=== PATIENT | female | born 1970 | race American Indian/Alaskan Native ===

== ENCOUNTER 2018-06-28 00:54 | Emergency (ER) | payer SELFPAY ==
[2018-06-28] MEDS ORDERED: Sodium Chloride 0.9% 1,000 ML IV ONE (01:10)
[2018-06-28 01:11] VITALS: RESP 20
[2018-06-28] MEDS ORDERED: Sucralfate 1 gm/10 ml Oral Susp UD PO STA (01:13)
--- NOTE | 2018-06-28 01:15 | C.PDOC ---
History Of Present Illness 47 year old female presents to the ED c/o upper abdominal and lower chest pain for the past 2 days. Patient admits to drinking alcohol tonight. Patient denies fever, chills, SOB, palpitations, rash, back pain, dysuria, weakness, numbness. Chief Complaint (Nursing): Abdominal Pain History Per: Patient History/Exam Limitations: intoxication Onset/Duration Of Symptoms: Days Current Symptoms Are (Timing): Still Present Suicide/Self Injury Attempted (Context): None Modifying Factor(s): Alcohol Associated Symptoms: denies: Depression, Suicidal Thoughts, Suicidal Plan Additional History Per: Patient Past Medical History Reviewed: Historical Data, Nursing Documentation, Vital Signs Vital Signs: Last Vital Signs Temp 98 F 06/28/18 01:03 Pulse 71 06/28/18 01:03 Resp 20 06/28/18 01:03 BP 122/80 06/28/18 01:03 Pulse Ox 99 06/28/18 01:03 - Medical History PMH: Anxiety, HTN Surgical History: No Surg Hx Family History: States: Unknown Family Hx - Social History Hx Alcohol Use: Yes Hx Substance Use: Yes - Immunization History Hx Tetanus Toxoid Vaccination: No Hx Influenza Vaccination: No Hx Pneumococcal Vaccination: No Review Of Systems Constitutional: Negative for: Fever, Chills Cardiovascular: Positive for: Chest Pain Respiratory: Negative for: Shortness of Breath Gastrointestinal: Positive for: Abdominal Pain. Negative for: Nausea, Vomiting Skin: Negative for: Rash Neurological: Negative for: Weakness, Numbness Psych: Negative for: Depression, Suicidal ideation Physical Exam - Physical Exam Appears: Non-toxic, No Acute Distress, Other (AOB) Skin: Normal Color, Warm, Dry Head: Atraumatic, Normacephalic Eye(s): bilateral: Normal Inspection Oral Mucosa: Moist Neck: Normal ROM, Supple Chest: Symmetrical Cardiovascular: Rhythm Regular Respiratory: Normal Breath Sounds, No Rales, No Rhonchi, No Wheezing Gastrointestinal/Abdominal: Soft, Tenderness (epigastric), No Guarding, No Rebound Extremity: Normal ROM, No Tenderness, No Swelling Neurological/Psych: Oriented x3, Normal Speech, Normal Cognition Gait: Steady ED Course And Treatment - Laboratory Results Result Diagrams: 06/28/18 01:27 06/28/18 01:27 ECG: Interpreted By Me, Viewed By Me ECG Rhythm: Sinus Rhythm ECG Interpretation: Normal, No Acute Changes Interpretation Of ECG: NSR, normal tracings. Rate From EC O2 Sat by Pulse Oximetry: 99 (ON RA) Pulse Ox Interpretation: Normal Medical Decision Making Medical Decision Making: Plan: * Labs * EKG * CXR * Carafate 1 gm PO * Protonix 40 mg IVP * IV fluids * Toradol 30 mg IVP * UA Disposition Counseled Patient/Family Regarding: Diagnosis - Disposition Referrals: [facility] [Outside] Disposition: HOME/ ROUTINE Disposition Time: 03:49 Condition: STABLE Prescriptions: Pantoprazole Sodium [Protonix] 40 mg PO DAILY #20 ect Potassium Chloride [K-Dur 20] 20 meq PO DAILY #14 tab Sucralfate [Carafate] 1 gm PO BID #30 tablet Instructions: Storey Diet, Gastritis (DC), Alcohol Abuse and Alcoholism (DC), Hypokalemia (DC) - POA Present On Arrival: None - Clinical Impression Clinical Impression: Gastritis, Gastritis due to alcohol without hemorrhage, Hypokalemia - Scribe Statement The provider has reviewed the documentation as recorded by the Scribconnie Jolly All medical record entries made by the Scribe were at my direction and personall y dictated by me. I have reviewed the chart and agree that the record accurately reflects my personal performance of the history, physical exam, medical decision making, and the department course for this patient. I have also personally directed, reviewed, and agree with the discharge instructions and disposition.
[2018-06-28] MEDS ORDERED: Sodium Chloride 0.9% 1,000 ML ONE (01:31)
[2018-06-28 01:33] LABS: BASO # 0.2 K/uL (0.0-0.2); BASO % 1.5 % (0.0-2.0); EOS # 0.1 K/uL (0.0-0.7); EOS % 1.2 % (0.0-4.0); HEMOGLOBIN 13.2 g/dL (11.0-18.0); LYMPH # 3.7 K/uL (1.0-4.3); LYMPH % 32.3 % (20.0-40.0); MEAN CELL VOLUME 77.2 fL (81.0-99.0); MEAN CORPUSCULAR HEMOGLOBIN 24.6 pg (27.0-31.0); MEAN CORPUSCULAR HGB CONC 31.8 g/dL (33.0-37.0); MEAN PLATELET VOLUME 8.4 fL (7.2-11.7); MONO # 0.5 K/uL (0.0-0.8); MONO % 3.9 % (0.0-10.0); NEUT # 7.1 K/uL (1.8-7.0); NEUT % 61.1 % (50.0-75.0); RBC 5.38 Mil/uL (3.80-5.90); WHITE BLOOD COUNT 11.6 K/uL (4.8-10.8)
[2018-06-28 02:05] LABS: SQUAMOUS EPITHIAL 1 /hpf (0-5); URINE BILIRUBIN NEGATIVE (NEGATIVE); URINE BLOOD NEGATIVE (NEGATIVE); URINE CLARITY Hazy (Clear); URINE COLOR Straw (YELLOW); URINE GLUCOSE (UA) NORMAL (Normal); URINE LEUKOCYTE ESTERASE NEG Leu/uL (Negative); URINE PROTEIN NEGATIVE (NEGATIVE); URINE UROBILINOGEN NORMAL mg/dL (0.2-1.0)
[2018-06-28 02:20] LABS: HCG,QUALITATIVE URINE NEGATIVE (NEGATIVE)
[2018-06-28 02:21] LABS: ALB/GLOB RATIO 1.3 (1.0-2.1); ALBUMIN 4.6 g/dL (3.5-5.0); AST/SGOT 31 U/L (14-36); BLOOD UREA NITROGEN 10 mg/dL (7-17); CALCIUM 9.8 mg/dl (8.6-10.4); GFR NON-AFRICAN AMERICAN > 60; LIPASE 123 U/L (23-300)
[2018-06-28 02:26] LABS: ALT/SGPT < 6 U/L (9-52)
[2018-06-28] MEDS ORDERED: Potassium Chloride 20 mEq ER Tab PO STA (02:38)
[2018-06-28] MEDS ORDERED: Potassium Chloride 20 mEq ER Tab PO ONE (03:00)
[2018-06-28 04:07] VITALS: BP 110/70; PULSE 66; TEMP 97.9; O2SAT 96
--- NOTE | 2018-06-28 09:10 | RAD ---
Date of service: 06/28/2018 HISTORY: chest pain COMPARISON: 06/28/2018 FINDINGS: LUNGS: Diffuse increased interstitial lung markings suggestive for venous congestion. Mild patchy increased markings at the lung bases. PLEURA: No significant pleural effusion identified, no pneumothorax apparent. CARDIOVASCULAR: No aortic atherosclerotic calcification present. Normal cardiac size. Venous congestion. OSSEOUS STRUCTURES: No significant abnormalities. VISUALIZED UPPER ABDOMEN: Normal. OTHER FINDINGS: None. IMPRESSION: Diffuse increased interstitial lung markings suggestive for venous congestion. Mild patchy increased markings at the lung bases.
--- NOTE | 2018-06-28 12:46 | CARD ---
APPROVED REPORT Date of service: 06/28/2018 EKG Measurement Heart [id number] <Conclusion> Normal sinus rhythm with sinus arrhythmia Normal ECG
== END 2018-06-28 04:10 | disposition home or self-care (01) ==
LOC: C.ER 00:54
DX: K29.20 Alcoholic gastritis without bleeding (principal); E87.6 Hypokalemia; I10 Essential (primary) hypertension; F17.210 Nicotine dependence, cigarettes, uncomplicated
CPT/HCPCS: 71045; 80053; 81001; 83690; 84484; 84703; 85025; 93005; 96374; 96375; 99283; C9113; G0480; J1885; J7030